=== PATIENT | female | born 1950 | race African-American/Black ===

== ENCOUNTER 2018-03-16 23:22 | Emergency (ER) | payer MEDICARE, MEDICAID ==
[~2018-03-16] VITALS: Ht 170.2 cm; Wt 77.0 kg
[2018-03-17] MEDS ORDERED: ACETAMINOPHEN 325MG TABLET PO ONE (03:15)
[2018-03-17 04:43] VITALS: BP 132/92
== END 2018-03-17 04:52 | disposition home or self-care (01) ==
LOC: ER 23:22
DX: M25.551 Pain in right hip (principal); E11.9 Type 2 diabetes mellitus without complications; M19.90 Unspecified osteoarthritis, unspecified site; Z88.0 Allergy status to penicillin; Z88.5 Allergy status to narcotic agent; W01.0XXA Fall on same level from slipping, tripping and stumbling without subsequent striking against object, initial encounter; Y93.89 Activity, other specified; Y92.018 Other place in single-family (private) house as the place of occurrence of the external cause
CPT/HCPCS: 73502; 99284; Z7610

== ENCOUNTER 2018-10-16 10:51 | Emergency (ER) | payer MEDICARE, MEDICAID ==
[~2018-10-16] VITALS: Ht 170.2 cm; Wt 79.0 kg
[2018-10-16] MEDS ORDERED: NAPROXEN 375MG TABLET PO ONE (11:45)
[2018-10-16 14:18] VITALS: BP 124/99
== END 2018-10-16 14:26 | disposition home or self-care (01) ==
LOC: ER 11:03
DX: M54.5 Low back pain (principal); M25.552 Pain in left hip; M25.551 Pain in right hip; E11.9 Type 2 diabetes mellitus without complications; M19.90 Unspecified osteoarthritis, unspecified site; Z88.5 Allergy status to narcotic agent
CPT/HCPCS: 72100; 73522; 99283